=== PATIENT | male | born 1970 | race Caucasian/White ===

== ENCOUNTER 2023-02-12 19:11 | Emergency (ER) | payer OTHER, SELFPAY ==
--- NOTE | ~2023-02-12 | XR_ITS ---
EXAMINATION: XR chest 1V portable DATE: 02/12/2023 23:13 INDICATION: Epigastric pain TECHNIQUE: frontal view of the chest was obtained. COMPARISON: None FINDINGS: The lungs are clear with no focal airspace opacities, pulmonary edema, pleural effusion or pneumothor ax. The cardiomediastinal silhouette is normal. Mild upper thoracic levocurvature. IMPRESSION: 1. No acute cardiopulmonary disease. Reviewed, dictated and finalized at location A. [employer]
--- NOTE | ~2023-02-12 | CT_ITS ---
CT of the Abdomen and Pelvis: Indication: Abdominal pain Technique: 2.5 mm axial scans were obtained through the abdomen and pelvis following intravenous adm inistration of 100 cc of Omnipaque 350. Dose reduction technique was used on this scan by utilizing a utomated exposure control and iterative reconstruction technique. The dose-length product (DLP) was 7 41.11 mGy-cm. Findings: Scans through the lung bases are unremarkable. The liver, spleen, pancreas, gallbladder, adrenals and right kidney are within normal limits. Left re nal parapelvic cysts are present. No evidence of aortic aneurysm. No lymphadenopathy. No bowel obstruction or bowel wall thickening. There is no evidence to suggest acute appendicitis. Images through the pelvis were performed. Urinary bladder unremarkable. Prostate gland is mildly enla rged. No ascites. No ascites. Impression: No significant abnormalities seen. Reviewed, dictated and finalized at [facility]. [employer] Impression: No significant abnormalities seen.
[2023-02-12 19:40] VITALS: BP 128/84; PULSE 62; RESP 15; TEMP 36.5; O2SAT 99
[2023-02-12 19:52] LABS: Basophils Percent Auto 0.2 % (0.2-1.2); Eosinophils Percent Auto 0.6 % (0-4.4); Hematocrit 44.4 % (42.0-52.0); Hemoglobin 15.3 g/dL (14.0-18.0); Immature Granulocyte Absolute 0.01 K/mm3 (0.00-0.031); Immature Granulocyte Percent A 0.2 % (0-0.5); Lymphocytes Absolute Auto 1.54 K/mm3 (0.9-3.2); Lymphocytes Percent Auto 28.9 % (18.3-44.2); Mean Corpuscular HGB Conc 34.5 g/dl (32-36); Mean Corpuscular Hemoglobin 30.8 pg (26-34); Mean Corpuscular Volume 89.3 fl (80-100); Mean Platelet Volume 9.7 fl (7.4-10.4); Monocytes Absolute Auto 0.4 K/mm3 (0.1-0.6); Monocytes Percent Auto 6.6 % (2.6-8.5); Neutrophils Absolute Auto 3.4 K/mm3 (1.3-6.7); Neutrophils Percent Auto 63.5 % (45.5-73.1); Platelet Count Result 185 k/mm3 (150-375); Red Blood Count 4.97 M/mm3 (4.6-6.20); Red Cell Distribution Width 12.3 % (11.5-14.5); White Blood Count 5.3 K/mm3 (4.5-10.0)
[2023-02-12 20:09] LABS: Alanine Aminotransferase 23 U/L (6-50); Albumin Level 4.6 g/dL (3.5-5.1); Alkaline Phosphatase 62 U/L (38-126); Anion Gap 10 mmol/L (8-16); Aspartate Amino Transferase 26 U/L (17-59); Bilirubin,Total 1.5 mg/dL (0.2-1.3); Blood Urea Nitrogen 14 mg/dL (9-20); Calcium 9.6 mg/dL (8.4-10.2); Carbon Dioxide 29 mmol/L (22-30); Chloride 98 mmol/L (98-107); Estimated CRCL calculation 110 ml/min; Estimated Glomerular Filt Rate > 60; Glucose 114 mg/dL (65-110); Lipase 69 U/L (23-300); Potassium 4.4 mmol/L (3.4-5.0); Sodium 137 mmol/L (137-145)
[2023-02-12 20:50] LABS: Appearance Urine Clear (Clear); Bacteria Urine None Seen /hpf; Bilirubin Urine Negative (Negative); Blood Urine Negative (Negative); Color Urine Dark Yellow (Yellow); Glucose Urine UA Negative (Negative); Ketones Urine 1+ mg/dL (Negative); Leukocyte Esterase Ur Negative LEU/UL (Negative); Nitrate Urine Negative (Negative); Non Pathogenic Casts 0-2; Protein Urine Trace mg/dL (Negative); RBC Urine 0-2 /hpf (0-2); Specific Grav Ur 1.023 (1.001-1.035); Squamous Epithelial Cell Urine None seen /hpf (Few); WBC Urine 0-5 /hpf; pH Urine 5.5 (5.0-9.0)
[2023-02-12 20:54] LABS: Add Urine Microscopic? YES
[2023-02-12 22:34] VITALS: O2SAT 100
[2023-02-12 23:04] VITALS: O2SAT 98
--- NOTE | 2023-02-12 23:04 | ED.ABDPAIN ---
HPI - Abdominal Pain General Chief Complaint: Abdominal Pain <CHRISTOPHER Sue Last Filed: 02/14/23 02:32> Stated Complaint: abdominal pain <CHRISTOPHER Sue Last Filed: 02/14/23 02:32> Time Seen by Provider: 02/12/23 22:18 <Latia Waters PA-C - Last Filed: 02/14/23 02:32> History of Present Illness HPI narrative: 52 y/o M male reports for evaluation for mid and epigastric abdominal pain x4 days. Patient states his pain developed on Thursday with a few episodes of emesis. States the following day he felt better, then ate later today again. Pt states the emesis has resolved however his abdominal pain has persisted. He does feel like his pain is 1 hour after eating. He reports generalized weakness as well. Last bowel movement was today and normal. He denies diarrhea, constipation, fever, chest pain or shortness of breath, cough or congestion no urinary complaints. Denies history of abdominal surgeries. Denies melena, hematochezia, hematemesis or coffee-ground emesis. <Latia Waters PA-C - Last Filed: 02/14/23 02:32> Related Data Allergies/Adverse Reactions: Allergies Allergy/AdvReac Type Severity Reaction Status Date / Time No Known Allergies Allergy Verified 02/12/23 19:12 <Latia Waters PA-C - Last Filed: 02/14/23 02:32> Review of Systems Review of Systems: CONSTITUTIONAL: Denies fever, chills, or sweats. EYES: Denies visual changes, redness, or discharge. ENT: Denies rhinorrhea, congestion, sore throat, or otalgia. CARDIOVASCULAR: Denies chest pain, palpitations, or edema. RESPIRATORY: Denies cough or dyspnea. GASTROINTESTINAL: See HPI GENITOURINARY: Denies dysuria or hematuria. SKIN: Denies rash or itching. MUSCULOSKELETAL: Denies back pain, joint pain, or myalgia. NEUROLOGIC: Denies headache, numbness, or weakness. PSYCHIATRIC: Denies anxiety or depression. <CHRISTOPHER Sue Last Filed: 02/14/23 02:32> Exam Narrative: GENERAL: Well-appearing, well-nourished, and in no acute distress. HEAD: Normocephalic, atraumatic. EYES: PERRLA and EOMI. ENT: Nares clear, no rhinorrhea or epistaxis. Mucous membranes moist. NECK: Supple. CHEST: Clear to auscultation. No respiratory distress. HEART: Regular rate and rhythm. No murmur heard. Normal peripheral pulses. ABDOMEN: Normoactive bowel sounds. Tenderness in the epigastrium without guarding or rigidity. No rebound. No CVA tenderness. No overlying skin changes. EXTREMITIES: Normal range of motion. No edema. SKIN: Warm, dry, no rash. NEURO: No focal deficits. Alert and oriented x3 <Latia Waters PA-C - Last Filed: 02/14/23 02:32> Course Course Emergency Course: 03:00 - This patient was signed out to me by YOHAN Waters pending CT results, with tentative plan for discharge with a PPI. 04:45 - STAT Rad interpretation of CT abdomen pelvis not concerning for acute intra-abdominal process. I discussed the findings with the patient. He tolerated p.o. fluids. Will discharge with PPI and recommendation for primary care follow-up. Discussed return and emergency precautions including signs/symptoms of acute abdomen and intractable vomiting. The patient voiced understanding and is comfortable with the plan. All questions answered to his satisfaction. <Keven Keating MD - Last Filed: 02/13/23 05:26> Vital Signs Vital signs: Vital Signs Temperature 97.7 F 02/12/23 19:40 Pulse Rate 62 02/12/23 19:40 Respiratory Rate 15 02/12/23 19:40 Blood Pressure 128/84 02/12/23 19:40 Pulse Oximetry 99 02/12/23 19:40 Temperature 97.7 F 02/12/23 19:40 Pulse Rate 59 L 02/13/23 04:48 Respiratory Rate 14 02/13/23 04:48 Blood Pressure 145/74 H 02/13/23 04:31 Pulse Oximetry 100 02/13/23 04:31 <Latia Waters PA-C - Last Filed: 02/14/23 02:32> Vital Signs Temperature 97.7 F 02/12/23 19:40 Pulse Rate 62 02/12/23 19:40 Respiratory Rate 15
[2023-02-12 23:15] VITALS: O2SAT 98
[2023-02-12 23:16] VITALS: BP 123/81; O2SAT 100
[2023-02-12 23:30] VITALS: O2SAT 100
[2023-02-12] MEDS: FAMOTIDINE 20 MG/2 ML VIAL IV PUSH (23:34)
[2023-02-12] MEDS: MAG HYDROX/AL HYDROX/SIMETH 30 ML UDC PO (23:34)
[2023-02-12] MEDS: SODIUM CHLORIDE 0.9% IV 1,000 ML 999 ML IV CONT (23:34)
--- NOTE | 2023-02-12 23:42 | PC.NURSE ---
Assumed care of pt. Report from JAMA Palomo. Pt resting quietly per cart in nad at this time. IV established, meds administered per MAY and lab contacted for add ons.
[2023-02-12 23:53] LABS: Magnesium 1.9 mg/dL (1.6-2.3)
[2023-02-13] VITALS (32 sets, daily range): BP systolic 103–145; BP diastolic 73–89; PULSE 42–69; RESP 10–19; O2SAT 95–100
--- NOTE | 2023-02-13 | ECG_ITS ---
Measurements Intervals [place] Rate: 49 P: 31 FL: 127 QRS: 27 QRSD: 112 T: 40 QT: 449 QTc: 407 Interpretive Statements SINUS BRADYCARDIA INTRAVENTRICULAR CONDUCTION DELAY ABNORMAL ECG NO PREVIOUS ECG AVAILABLE FOR COMPARISON Electronically Signed On 02-13-2023 6:20:35 CS ASSOCIATE by Steven Melissa D.O.
[2023-02-13 00:05] LABS: Troponin I < 0.012 ng/mL (0.000-0.034)
== END 2023-02-13 04:52 | disposition home or self-care (01) ==
PROVIDERS: Physician Assistant; Emergency Provider Preventive Medicine Aerospace Medicine
DX: K29.70 Gastritis, unspecified, without bleeding (principal)
CPT/HCPCS: 36415; 71045; 74177; 80053; 81001; 83690; 83735; 84484; 85025; 93005; 96361; 96374; 99284; A9270; J7030; Q9967